=== PATIENT | female | born 1960 | race Two or more races ===

== ENCOUNTER 2016-12-22 20:04 | Observation (INO) | payer MEDICAID ==
[~2016-12-22] VITALS: Ht 167.6 cm; Wt 81.6 kg
[2016-12-22 21:11] LABS: Basophils # (auto) 0 uL; Basophils % (auto) 0.6 % (0.0-2.0); Eosinophils # (auto) 0.2 uL; Eosinophils % (auto) 3.2 % (0.0-7.0); Hemoglobin 13.5 g/dL (12.2-16.2); Lymphocytes # (auto) 1.2 uL; Lymphocytes % (auto) 24.4 % (10.0-50.0); Mean Corpuscular Hemoglobin 31.1 pg (28.0-32.0); Mean Corpuscular Hgb Conc. 33.7 g/dL (32.0-36.0); Mean Corpuscular Volume 92.4 fL (80.0-100.0); Mean Platelet Volume 10.8 fL (6.9-10.8); Monocytes # (auto) 0.6 uL; Monocytes % (auto) 12.6 % (0.0-12.0); Neutrophils # (auto) 2.9 uL; Neutrophils % (auto) 59.2 % (37.0-80.0); Nucleated Red Blood Cells % 0.3 %; Platelet Count (auto) 122 10^3/uL (140-450); Red Cell Distribution Width 14.8 % (11.8-14.3)
[2016-12-22 21:28] LABS: INR 1.16 (0.9-1.15); Partial Thromboplastin Time 27.5 sec (22.64-33.71); Prothrombin Time 12.7 sec (9.37-12.3)
[2016-12-22 21:42] LABS: Albumin 2.9 g/dL (3.4-5.0); Alkaline Phosphatase 145 U/L (45-117); Aspartate Aminotransferase 74 U/L (15-37); Bilirubin, Total 1.2 mg/dL (0.2-1.0); Blood Urea Nitrogen 12 mg/dL (7-18); Calcium 8.4 mg/dL (8.5-10.1); GFR African American 133 mL/min; GFR Non-African American 110 mL/min; Glucose 132 mg/dL (74-106); Magnesium 2.3 mg/dL (1.6-2.6); Total Protein 8.1 g/dL (6.4-8.2)
[2016-12-22] MEDS ORDERED: IODIXANOL 320MG/ML 100ML BTL IV ONE (22:07)
[2016-12-22 22:13] LABS: Potassium 4.5 mmol/L (3.5-5.1); Sodium 141 mmol/L (136-145)
[2016-12-22 22:14] LABS: Anion Gap 13 (5-15); Carbon Dioxide 24 mmol/L (21-32); Chloride 104 mmol/L (98-107)
[2016-12-22 22:43] LABS: B-Type Natriuretic Peptide 13.82 pg/mL (0-100)
[2016-12-22 22:44] LABS: Temperature: 21.9 C (20.0-25.0)
[2016-12-23 01:10] VITALS: BP 116/80
== END 2016-12-23 03:00 | disposition home or self-care (01) | DRG 351 ==
LOC: ER 20:16 → OVERFLOW 20:51 → ER 12-23 03:00
PROVIDERS: ADMIT Family Medicine; ATTEND Family Medicine
DX: M79.604 Pain in right leg (principal); M79.605 Pain in left leg; M54.5 Low back pain
CPT/HCPCS: 36415; 72129; 80053; 83735; 83880; 84443; 84484; 85025; 85379; 85610; 85730; 93005; 99285; G0378; Q9967